=== PATIENT | male | born 1950 | race Caucasian/White ===

== ENCOUNTER 2017-06-28 23:34 | Emergency (ER) | payer OTHER ==
[~2017-06-28] VITALS: Ht 170.2 cm; Wt 73.5 kg
[~2017-06-28 23:34] MED LIST: ALPR0.5T99 PO; CYCL5TAB PO; FISH1000 PO; OXYC1TAB13 PO; SOMA350T PO; TAB-TAB PO
[2017-06-28 23:36] VITALS: BP 144/74; PULSE 74; RESP 16; TEMP 97.8; O2SAT 97
[2017-06-28] MEDS ORDERED: IBUP-232 PO (23:49)
[2017-06-28] MEDS ORDERED: VENTAER INH (23:49)
[2017-06-29] MEDS ORDERED: KETOROLAC TROMETHAMINE 30 MG/ML (IVP) VIAL IV PUSH ONE
[2017-06-29] MEDS ORDERED: ONDANSETRON HCL 4 MG/2 ML VIAL IV PUSH ONE
[2017-06-29] MEDS ORDERED: HYDROmorphone HCL PF 2 MG/ML VIAL IV PUSH ONE
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
--- NOTE | 2017-06-29 01:42 | RADRPT ---
EXAM DATE/TIME: 06/29/2017 00:55 [facility] COMPARISON: No previous studies available for comparison. INDICATIONS : Mid back pain radiating into neck for six days. RADIATION DOSE: 26.62 CTDIvol (mGy) MEDICAL HISTORY : None SURGICAL HISTORY : None. ENCOUNTER: Initial ACUITY: 4 - 6 days PAIN SCALE: 9/10 LOCATION: Bilateral neck TECHNIQUE: Volumetric scanning of the cervical spine was performed. Multiplanar reconstructions in the sagittal, coronal and oblique axial planes were performed. Using automated exposure control and adjustment o f the mA and/or kV according to patient size, radiation dose was kept as low as reasonably achievable to obtain optimal diagnostic quality images. DICOM format image data is available electronically f or review and comparison. FINDINGS: VERTEBRAE: Normal vertebral body height. ALIGNMENT: There is minimal posterior subluxation of C3 on C4, C4 on C5, and C5 on C6. C2-C3: The bony spinal canal is normal in size. No evidence of disc bulge or herniation. The neural forami na are bilaterally patent. There is mild facet hypertrophy especially on the right. C3-C4: The disc demonstrates decreased height. There is mild posterior osteophytic ridging. There is uncover tebral hypertrophy. There is mild neural foramina narrowing being worse in the left. C4-C5: The disc demonstrates decreased height. There is mild posterior osteophytic ridging. There is uncover tebral hypertrophy. There is mild neural foramina narrowing. C5-C6: The disc demonstrates decreased height. There is moderate posterior osteophytic ridging. There is unc overtebral hypertrophy. There is neural foramina narrowing. C6-C7: The disc demonstrates decreased height. There is mild posterior osteophytic ridging. There is uncover tebral hypertrophy. The neural foramina are bilaterally patent. C7-T1: The bony spinal canal is normal in size. No evidence of disc bulge or herniation. The neural forami na are bilaterally patent. CONCLUSION: Degenerative change in the mid cervical spine as described above. Braxton Singh MD on June 29, 2017 at 1:31 Board Certified Radiologist. This report was verified electronically.
--- NOTE | 2017-06-29 01:57 | RADRPT ---
EXAM DATE/TIME: 06/29/2017 00:58 [facility] COMPARISON: No previous studies available for comparison. INDICATIONS : Mid back pain radiating into neck for six days. RADIATION DOSE: 24.72 CTDIvol (mGy) MEDICAL HISTORY : None SURGICAL HISTORY : None. ENCOUNTER: Initial ACUITY: 4 - 6 days PAIN SCALE: 9/10 LOCATION: Bilateral thoracic spine TECHNIQUE: Volumetric scanning of the thoracic spine was performed. Multiplanar reconstructions in the sagittal , coronal and oblique axial planes were performed. Using automated exposure control and adjustment o f the mA and/or kV according to patient size, radiation dose was kept as low as reasonably achievable to obtain optimal diagnostic quality images. DICOM format image data is available electronically f or review and comparison. FINDINGS: The vertebral bodies of the thoracic spine are in normal alignment without evidence of subluxation. Vertebral body height is maintained. No fractures are seen. There are marginal osteophytes at the T3 -L1 levels. T1-T2: Normal. T2-T3: The thecal sac has a normal diameter. No evidence of disc bulge or protrusion. T3-T4: The thecal sac has a normal diameter. No evidence of disc bulge or protrusion. T4-T5: There is a vacuum phenomenon. There is mild posterior osteophytic ridging without significant stenosi s. T5-T6: The disc space is narrowed. There is minimal posterior osteophytic ridging without significant stenos is. T6-T7: There is a vacuum phenomenon. There is mild posterior osteophytic ridging without significant stenosi s. T7-T8: There is a vacuum phenomenon. There is mild posterior osteophytic ridging without significant stenosi s. T8-T9: The disc space is narrowed. There is minimal posterior osteophytic ridging without significant stenos is. T9-T10: There is a vacuum phenomenon. There is mild posterior osteophytic ridging without significant stenosi s. T10-T11: There is a vacuum phenomenon. There is mild posterior osteophytic ridging without significant stenosi s. T11-T12: There is a vacuum phenomenon. There is mild posterior osteophytic ridging without significant stenosi s. T12-L1: The thecal sac has a normal diameter. No evidence of disc bulge or protrusion. CONCLUSION: Degenerative change throughout. There is disc space narrowing and osteophytes seen throughout. A sign ificant area of stenosis is not seen. No acute bony injury seen. Barxton Singh MD on June 29, 2017 at 1:51 Board Certified Radiologist. This report was verified electronically.
[2017-06-29] MEDS ORDERED: DEXAMETHASONE SOD PHOS 4 MG/ML VIAL IV PUSH ONE (02:00)
[2017-06-29] MEDS ORDERED: MEDR4PAK PO (02:05)
[2017-06-29] MEDS ORDERED: TRAM50TA PO (02:05)
[2017-06-29] MEDS ORDERED: ROBA750T PO (02:05)
[2017-06-29 02:25] VITALS: BP 138/72
== END 2017-06-29 02:27 | disposition home or self-care (01) ==
LOC: PHED 23:34
DX: M54.13 Radiculopathy, cervicothoracic region (principal)
CPT/HCPCS: 72125; 72128; 96374; 96375; 99285; J1100; J1170; J1885; J2405